=== PATIENT | male | born 1980 | race Two or more races ===

== ENCOUNTER → 2022-03-19 | Emergency (ER) | payer OTHER ==
[~2022-03-19] VITALS: Ht 180.3 cm; Wt 97.5 kg
== END | disposition home or self-care (01) ==
LOC: ER 23:35
DX: S05.92XA Unspecified injury of left eye and orbit, initial encounter (principal); W54.1XXA Struck by dog, initial encounter; Y93.9 Activity, unspecified; Y92.9 Unspecified place or not applicable; Z88.8 Allergy status to other drugs, medicaments and biological substances